=== PATIENT | male | born 1965 | race Caucasian/White ===

== ENCOUNTER → 2017-05-08 | Day surgery (SDC) | payer BC ==
[~2017-05-08] MED LIST: ACETAMINOPHEN 1000 MG/100 ML 100 ML IV ONE; BUPIVACAINE/EPINEPHRINE 0.25% PF 30 ML VIAL INFIL ONE; CIALIS; LACTATED RINGER'S 1000 ML INJ 1,000 ML ONE; MEPERIDINE HCL 50 MG/ML VIAL ONE; MIDAZOLAM HCL 2 MG/2 ML VIAL ONE; NEXI40CA PO; ONDANSETRON HCL 4 MG/2 ML VIAL IV PUSH ONE; PROPOFOL 100 MG/10 ML INJ IV ONE; VALT1TAB26 PO
--- NOTE | 2017-05-08 12:21 | PD.OP ---
cc: Pedro Luis Bains MD Operative Report Date of Surgery: May 08, 2017 Preoperative Diagnosis: (1) Lipoma of left shoulder Postoperative Diagnosis: (1) Lipoma of left shoulder Procedure: Excision of 8 cm left shoulder lipoma Anesthesia: Gen. Surgeon: Pedro Luis Bains Pole Tester(s): Staff Operation and Findings: EBL: 5cc Operative findings: 8 cm left shoulder lipoma adherent to dermis and underlying muscle and acromion. Procedure in detail: The patient was taken the operating room placed in supine position. Gen. anesthesia was induced. The left shoulder was prepped and draped in usual sterile fashion and a surgical timeout was performed to verify correct patient procedure site. Local anesthetic was injected in skin and subcutaneous tissue overlying the soft tissue mass. A transverse incision was made over the underlying lipoma. Dissection carried through subcutaneous tissue with electrocautery. The lipoma was noted to be adherent to the dermis. It was carefully taken down from the overlying dermis with electrocautery. Circumferentially the lipoma was dissected with electrocautery and was densely adherent to surrounding tissues including inferiorly at the muscle and the acromion. Finally the entire lipoma was able to be removed in mass and was proximally 8 cm in diameter with multiple lobules. Hemostasis was achieved. The incision was closed with deep dermal 3-0 Vicryl sutures and subcuticular 4- 0 Monocryl and Dermabond. The patient tolerated procedure well. A pressure dressing was placed to try to decrease the incidence of seroma. Pedro Luis Bains MD May 08, 2017 12:21
== END | disposition home or self-care (01) ==
LOC: ESDC 09:19
PROVIDERS: ATTEND Surgery
DX: D17.22 Benign lipomatous neoplasm of skin and subcutaneous tissue of left arm (principal)
CPT/HCPCS: 00400; 23071; 88304; J0131; J2250; J2405; J3010; J7120; 88305; J2175